=== PATIENT | male | born 1990 | race Caucasian/White ===

== ENCOUNTER 2017-04-16 05:31 | Inpatient (IN) | payer BC ==
[2017-04-16] MEDS ORDERED: OLANZapine DISINTEGR 5 MG TAB PO ONE (05:47)
--- NOTE | 2017-04-16 05:50 | EDPHY ---
H & P - Medical/Surgical History Hx Asthma: No Hx Chronic Respiratory Disease: No Hx Diabetes: No Hx Cardiac Disease: No Hx Renal Disease: No Hx Cirrhosis: No Hx Alcoholism: Yes Hx HIV/AIDS: No Hx Splenectomy or Spleen Trauma: No Other PMH: sleep shift syndrome, ADD, alcoholic - Social History Smoking Status: Former smoker Time Seen by Provider: 04/16/17 05:44 HPI/ROS: Chief Complaint: Paranoia HPI: 27-year-old male brought in by the police exhibiting symptoms of extreme paranoia. Police were called for and agitated male outside the [employer]. Patient states that there are man driving black vehicles trying to get him because of things that he has been posting on the Internet. He was not able to provide any further details to the police. Patient states that he felt unsafe going back into the hotel. They did confirm with hotel staff that he was indeed a registered gas there. He denies any drug use. He does state that he had ADD as a child but is not currently on any medications. Is not been under the care of psychiatrist in the past. Denies any alcohol use. He is unwilling to provide any further information about his situation because he states it will put us and himself in further danger. He is insisting that he wants to speak to a police supervisor channel process for his protection. ROS: 10 point Review of Systems is negative except as noted in the HPI. PMH: Attention deficit hyperactivity disorder Social History: No smoking, occasional alcohol, no recreational drug use Family History: non-contributory Physical Exam: Gen: Awake, Alert, agitated, appears to be afraid HEENT: Nose: no rhinorrhea Eyes: PERRLA, EOMI Mouth: Moist mucosa Neck: Supple, no JVD Chest: nontender, lungs clear to auscultation Heart: S1, S2 normal, no murmur Abd: Soft, non-tender, no guarding Back: no CVA tenderness, no midline tenderness Ext: no edema, non-tender Skin: no rash Neuro: CN II-XII intact, Sensation grossly intact, Strength 5/5 in bilateral upper and lower extremities (Denzel Christine) Constitutional: Initial Vital Signs Temperature (C) 36.4 C 04/16/17 05:53 Heart Rate 111 H 04/16/17 05:53 Respiratory Rate 18 04/16/17 05:53 Blood Pressure 144/87 H 04/16/17 05:53 O2 Sat (%) 95 04/16/17 05:53 O2 Delivery Mode Room Air Allergies/Adverse Reactions: No Known Allergies Allergy (Unverified 02/08/14 22:46) Home Medications: Medication Instructions Recorded NK [No Known Home Meds] 04/16/17 Medical Decision Making ED Course/Re-evaluation: 27-year-old male presenting with acute psychotic break. He is paranoid convince that people are out to get him. He he is not able or willing to provide any further details. I have offered him olanzapine but he is refusing at this time. He has been placed on a mental health hold by police. He will certainly need mental health evaluation. 0700 Pt s/o to Dr. Dasilva pending mental health evaluation. (Denzel Christine) 2:45 p.m. patient is in his room and is calm. We continue to await psychiatric evaluation and placement. Care transferred to Dr. Julian Randhawa at shift change. 3:15 p.m. patient has been evaluated by Mental Health and will be admitted to [address] [place] [address] Dr. Borjas. (Anup Dasilva) 1900: This patient has been accepted at [address] [place] [address] Borjas. Appropriate transfer be set up. EMTALA form filled out. (Julian Randhawa) Differential Diagnosis: Partial list of the Differential diagnosis considered include but were not limited to; psychosis, schizophrenia, substance abuse and although unlikely based on the history and physical exam, I also considered head injury, infection. (Anup Dasilva) - Data Points Laboratory Results: Laboratory Results 04/16/17 06:30 04/16/17 06:30 04/16/17 04/16/17 06:30 06:30 Neut % (Auto) 78.5 % H % (39.3-74.2) Lymph % (Auto) 13.5 % L % (15.0-45.0) [place] % (Auto) 6.9 % % (4.5-13.0) Eos % (Auto) 0.3 % L % (0.6-7.6) Baso % (Auto) 0.4 % % (0.3-1.7) Nucleat RBC Rel Count 0.0 % % (0.0-0.2) Absolute Neuts (auto) 7.23 10^3/uL H 10^3/uL (1.70-6.50) Absolute Lymphs (auto) 1.25 10^3/uL 10^3/uL (1.00-3.00) Absolute Monos (auto) 0.64 10^3/uL 10^3/uL (0.30-0.80) Absolute Eos (auto) 0.03 10^3/uL 10^3/uL (0.03-0.40) Absolute Basos (auto) 0.04 10^3/uL 10^3/uL (0.02-0.10) Absolute Nucleated RBC 0.00 10^3/uL 10^3/uL (0-0.01) Immature Gran % 0.4 % % (0.0-1.1) Immature Gran # 0.04 10^3/uL 10^3/uL (0.00-0.10) Sodium 137 mEq/L mEq/L (134-144) Potassium 3.4 mEq/L L mEq/L (3.5-5.2) Chloride 101 mEq/L mEq/L (97-110) Carbon Dioxide 25 mEq/l mEq/l (22-31) Anion Gap 11 mEq/L mEq/L (8-16) BUN 9 mg/dL mg/dL (7-23) Creatinine 0.7 mg/dL mg/dL (0.7-1.3) Estimated GFR > 60 Glucose 108 mg/dL H mg/dL (70-100) Calcium 9.7 mg/dL mg/dL (8.5-10.4) Ethyl Alcohol < 10 mg/dL mg/dL (0-10) Medications Given: Discontinued Medications Olanzapine (Zyprexa Zydis) 10 mg PO EDNOW ONE Stop: 04/16/17 05:48 Last Admin: 04/16/17 09:06 Dose: Not Given Departure - Departure Disposition: [facility] IP Clinical Impression: Acute psychosis Condition: Fair Referrals: NONE *PRIMARY CARE P,. [Primary Care Provider] - As per Instructions
[2017-04-16 06:46] LABS: % IMMATURE GRANULYOCYTES 0.4 % (0.0-1.1); ABSOLUTE IMMATURE GRANULOCYTES 0.04 10^3/uL (0.00-0.10); ADD DIFF? NO; ADD MORPH? NO; ADD SCAN? YES; FRAGMENT RBC FLAG 0 (0-99); HEMATOCRIT 36.4 % (40.0-51.0); HEMOGLOBIN 12.6 g/dL (13.7-17.5); LEFT SHIFT FLG 0 (0-99); LIPEMIA HEMOLYSIS FLAG 90 (0-99); MEAN CELL HEMOGLOBIN 30.8 pg (27.9-34.1); MEAN CELL HEMOGLOBIN CONCENTR. 34.6 g/dL (32.4-36.7); MEAN PLATELET VOLUME 9.5 fL (8.7-11.7); PLATELET CLUMPS FLAG 0 (0-99); PLATELET COUNT 330 10^3/uL (150-400); RED BLOOD CELL COUNT 4.09 10^6/uL (4.40-6.38); RED CELL DISTRIBUTION WIDTH 14.4 % (11.5-15.2)
[2017-04-16 06:48] LABS: ATYPICAL LYMPHOCYTE FLAG 150 (0-99)
[2017-04-16 07:01] LABS: ANION GAP 11 mEq/L (8-16); CALCIUM 9.7 mg/dL (8.5-10.4); CARBON DIOXIDE 25 mEq/l (22-31); CHLORIDE 101 mEq/L (97-110); CREATININE 0.7 mg/dL (0.7-1.3); ETHANOL SERUM < 10 mg/dL (0-10); GLOMERULAR FILTRATION RATE > 60; GLUCOSE 108 mg/dL (70-100); POTASSIUM 3.4 mEq/L (3.5-5.2); SODIUM 137 mEq/L (134-144)
[2017-04-16 07:15] LABS: SCAN NEGATIVE
[2017-04-16 16:28] VITALS: O2SAT 97
[2017-04-16 19:09] VITALS: BP 121/66; PULSE 62; TEMP 98.8
[2017-04-16 20:46] VITALS: RESP 17
[2017-04-16] MEDS ORDERED: ACETAMINOPHEN 325 MG TAB PO PRN (22:19)
[2017-04-16] MEDS ORDERED: LORazepam 0.5 MG TAB PO PRN (22:19)
[2017-04-16] MEDS ORDERED: OLANZapine DISINTEGR 5 MG TAB PO PRN (22:19)
[2017-04-16] MEDS ORDERED: MAG HYDROX/AL HYDROX/SIMETH 30 ML UDCUP PO PRN (22:19)
[2017-04-16] MEDS ORDERED: NICOTINE POLACRILEX 2 MG GUM B PRN (22:19)
[2017-04-16] MEDS ORDERED: MAGNESIUM HYDROXIDE 30 ML UDCUP PO PRN (22:19)
[2017-04-16] MEDS ORDERED: MELATONIN 3 MG TAB PO PRN (22:22)
[2017-04-16] MEDS ORDERED: OLANZapine DISINTEGR 10 MG TAB PO ONE (22:37)
--- NOTE | 2017-04-17 14:12 | BAPA ---
[f rep st] ADMISSION PSYCHIATRIC ASSESSMENT DATE OF SERVICE: 04/17/2017 CHIEF COMPLAINT: Paranoia. The patient stated, "I need to get some sleep. I think it's pretty german r. I don't want to get into that situation that was pretty over the top." HISTORY OF PRESENT ILLNESS: This is a 27-year-old man with no known past psych history, wh o was brought to [facility] ED by [email or web address] police on an M1 hold, which states "responding officer dispatched to a male who had repeatedly contacted the [facility] regarding unknown individuals chasing him in black [place]." The police report goes on to state, "male was unable or unwilling to provide any suspect info o r license plate info for involved vehicles. When asked why he was being chased, the male explained i t was because he had commented on info related to the [place] political and finance systems. Male appea red highly paranoid of his current living situation, the [facility]. Male also was not comfort able in any other scenarios offered by the responding officer. Male had been walking the streets and not staying in his hotel room. Temperature at the time was 28 degrees." Mental health sand car worker att empted at 3 different times to evaluate the patient in the [facility] ED, but the patient was unable t o complete the BDI, BSS questionnaires. Efforts to try to establish some rapport with the patient to feel more comfortable proved unsuccessful. The patient was not agitated or combative or aggressive. He was disorganized, incoherent, and paucity of speech, not responding to questions. ER evaluated and noted that the patient had a "significant thought blocking and response delays to simple question s." The patient was not able or willing to provide an emergency contact information, so no collatera l information could be obtained. The patient could not state for how long he had been staying at the [facility]. He stated that he had attended for a couple of years in the past, but could no t provide any specific details. He did deny taking any medications, but beyond that, the patient was not willing or able to provide any substantiating information. When this MD met with the patient on the behavioral health psych unit, he was extremely uncooperative and unwilling to be forthcoming. He was very pleasant and polite. He was lying on the couch in fro nt of the television, in a hospital gown. Initially, he was reluctant to meet with a psychiatrist. When the psychiatrist agreed to meet with him in an open area where we could be seen by the staff, th e patient agreed to sit in one of the chairs. When MD asked the patient if he could recall anything about the reason he got admitted or events of the prior evening, the patient said "it's pretty obviou s isn't it?" Later, when the MD prompted the patient for further details, the patient said "the repor ts are self-explanatory." When MD asks the patient what reports he was referring to, the patient seem ed to get frustrated and said "I think that's irrelevant." When MD asked the patient if he had ever t aken medications or had any prior experience with mental health treatment, patient said "I'm done ans wering questions." MD asked the patient if he was hungry. He said that he was. MD encouraged the pa myriam to eat lunch since trays were being provided in the dining area, and the patient said "maybe la ter" and said "I don't want to right now." PAST PSYCHIATRIC HISTORY: There is no information in the patient's record to indicate that he has ev er received any prior psych history, but again, the patient is not forthcoming, and no collateral inf ormation could be obtained at this time because we have no emergency contacts for the patient. ALLERGIES: The patient has no known drug allergies. CURRENT MEDICATIONS: None. PAST MEDICAL HISTORY: Unknown history due to the patient's unwillingness to provide us any informati on. SOCIAL HISTORY: Pretty much the same. The patient is not willing or able to disclose anything about his living situation or his social supports. The police were able to verify that the [facility], but they are not clear as to how long he had actually been staying the re, and when asked where the patient has been staying lately and whom he has had contact with, the bentley myriam is not forthcoming. SUBSTANCE USE HISTORY: Again, the patient does not answer any questions about his substance use hist ory. When asked about marijuana and alcohol specifically, the patient refuses to answer. His urine drug screen was negative. The only information that the patient does provide about his social histor y is that he told the ED sand car worker that he had attended , he said for 1-2 years "in the past," but gives no specifics as to when that was or what he was studying, or if he currently has a residence in [place] or where his current permanent place of residence is. He also denies answering any question s about any legal history. FAMILY HISTORY: Likewise, we do not know anything about the family history. We also have no emergen cy contacts. The patient is either unwilling or unable to disclose any social supports or relevant f amily information. ADMISSION LABS: The patient's white cell count was 9.23. Hemoglobin was 12.6. Hematocrit was 36.4. Platelet count was 330. His sodium level was 137. Potassium was 3.4, chloride 101, BUN 9, creatini ne 0.7. Glucose was 108, calcium 9.7. His urine drug screen was negative for all drugs of abuse. E thyl alcohol level, blood alcohol level was less than 10. MENTAL STATUS EXAMINATION: Patient is a very thin, appropriately groomed individual with a neatly tr immed oconnor, short brown hair. He is wearing a hospital gown, lying on the couch. Staff report that the patient did not sleep in his room and has not gone into his room since he was admitted. He has also declined to eat breakfast or lunch today. He seems guarded and defensive and wary. He is initi ally reluctant to speak to the MD, but when he does agree to talk to the MD, he is polite and pleasan t, but not forthcoming with any information. His affect is blunt. His mood, he says, is "okay." His thought process is disorganized. There is evidence of thought blocking, paucity of speech. His tho ught content reveals evidence of paranoia based upon his report to the police about being followed by people in [facility] and his reluctance to engage in conversation or relay information to the ED e valuator, as well as this MD. The patient is alert and oriented only to person. He does not know wh ere he is or why he is here. He is not accurate about the date or the time either. There is no evid ence or indication that he has reported any thoughts of suicide, either when he was picked up by the police or when he was evaluated in the ED. He has not endorsed any SI, HI today. His intellect is d ifficult to assess, although he states that he does have approximately 1-2 years of college, but this has not been verified, and he does not answer questions sufficiently to evaluate his fund of knowled ge or his vocabulary. His insight and judgment are both severely impaired at the current time. DIAGNOSES: 1. Psychosis. 2. Psychosocial stressors include apparent lack of social support, living in a hotel, unclear as to what other stressors might be affecting him at this time. Will await further information from the pa tient or hopefully be able to obtain some information from collateral sources if he is willing to dis close, or if we can get some information from his personal belongings. PLAN: 1. Admit to behavioral services inpatient unit on an M1 hold. 2. Monitor closely for safety and on assault precautions. 3. The patient has Zyprexa ordered, which he has refused. He has also refused all other medications , including pain medications and Ativan, which was offered for anxiety. 4. Will engage the patient in individual, group, and milieu therapies as much as possible. So far, the patient has been avoiding interactions with peers and involvement of participation in any milieu activities. He has also refused meals and has refused to go to his room. 5. Estimated length of stay is 3-5 days. /[id number]/MODL
--- NOTE | 2017-04-17 18:58 | GCON ---
[f rep st] CONSULTATION MEDICINE CONSULTATION DATE OF CONSULTATION: 04/17/2017 REASON FOR CONSULTATION: Medical opinion regarding med stabilization for inpatient psychiatric hospi talization. HISTORY: The patient is a 27-year-old male, who was found paranoid and agitated by police in front o f a hotel that he was staying at. He was under the impression that there was some black vehicles gabriele t were following him, and he called police. Since arriving at the inpatient unit, he is refusing to talk to anyone. He is refusing to give any further details. He is refusing any medications. He is refusing vital signs, he is refusing physical examination. No further information is available at th is time. PAST MEDICAL HISTORY: ADD. MEDICATIONS: None. ALLERGIES: No known drug allergies. SOCIAL HISTORY: Unknown, as the patient is refusing any further questioning. REVIEW OF SYSTEMS: Unobtainable due to the patient's refusal of questioning. FAMILY HISTORY: Unobtainable due to the patient's refusal of questioning. PHYSICAL EXAMINATION: GENERAL: He is a well-developed, well-nourished male. He is sitting comforta natalio on the couch eating a snack. He is awake, alert, just answers no, thank you to all questioning, although it is clear that he is comprehending the situation. VITAL SIGNS: Temp is 37.1, pulse 62, b lood pressure 121/66, satting 92% on room air. HEENT: Eye examination normal conjunctivae. No scle ral icterus. Hearing is intact. Unable to assess oropharynx due to the patient's noncompliance with examination. NECK: Appears supple. LUNGS: Unable to assess lungs due to the patient's refusal of auscultation. HEART: Unable to assess cardiovascular due to refusal of auscultation. There does n ot appear to be any edema. ABDOMEN: There does not appear to be any abdominal distention or abdomin al discomfort. SKIN: Warm, dry, intact without rash. MUSCULOSKELETAL: He appears to have 5/5 stre ngth in all extremities due to witnessed normal movement throughout. No cyanosis or clubbing. NEURO : Cranial nerves are grossly intact. Unable to assess sensation due to the patient refusal on any k ind of formal testing. He is awake, alert, not agitated. Seems to be perhaps a little angry that he is here. He is not hallucinating. He is pleasant and cooperative despite this refusal. LABS: White count 9.26, hematocrit 36.4, platelets 330, sodium 137, potassium 3.4, chloride 101, bic arb 25, BUN 9, creatinine 0.7, glucose 68. ASSESSMENT/PLAN: 1. Paranoia and agitation. Currently without any agitated behavior, but noncompliant with any furth er medical questioning or medical treatment. He continues on an M1 hold per Psychiatry. 2. Attention deficit disorder. Baseline treatment is unknown due to the patient's refusal to comply with questioning. 3. Anemia. This is mild. Etiology is unclear. I think this could be followed up as an outpatient. 4. Hypokalemia. This is also mild. I anticipate this will resolve with normal oral intake, and no urgent need to give any supplemental potassium at this time. Thank you very much for this consultation. Please recontact Internal Medicine if further assistance is needed during his stay. He is clearly medically stable for ongoing inpatient psychiatric hospital ization. /[id number]/MODL
--- NOTE | 2017-04-18 14:00 | SOAPPROG ---
SOAP Progress Note Assessment/Plan: Assessment: 27 yo man who reportedly has no psych hx. He was BIB [employer] to [facility] ED d/t paranoia believing that "some people in a black [place]" were after him. He was also refusing to stay in his hotel room and was walking on street when [employer] intercepted him. 04/18/17 13:56 1. Patient is refusing to take any psych meds. He denies any acute psychotic sxs , denies paranoia (even though it was a presenting sx) and denies AH/VH, delusions, IOR. He denies any SI/HI. 2. Patient refuses to provide any information about his family or friends. 3. Will place on [facility] until staff are able to verify patient will be safe upon discharge. He does not appear to be gravely disabled and states he "won't be living on the streets." But MD has no way today to verify this. Hopefully patient will allow us to contact someone for collateral information prior to d/ c. 4. Patient says he will accept referral for mental health providers even though he isn't interested in taking meds. He says he might be willing to "check in" with a doctor or therapist after d/c. Subjective: Met with patient and d/w staff. Patient presents more lucid, coherent and cooperative today. He slept 7.5 hrs in his room last night (had previously avoided going into his room and slept on couch in TV area). He is neatly groomed and appropriately dressed in street clothes. He says that his admission was d/t a "misunderstanding." He claims that "there were people yelling" out of SUV on street in front of [facility] on Wednesday night and patient took what they were saying "personally." He admits he called police b/c "that's what you' re supposed to do if people threaten you." He says now he doesn't think he was threatened and admits the people in black [place] "probably weren't even talking to me." However, he still refuses to provide any contact information for collateral. He says he moved to [place] 4 years ago, but has not worked during that time. 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 He says his family supports him financially and pays his rent. He had an apartment in [place], but says the lease has and he's been "staying in hotels" since that time. He says he doesn't get along with his family and doesn't communicate with them at all, but they still put money in bank account for him and pay his credit card bills. Patient says he has no friends or work colleagues and no social support. When MD asks where his parents live, he says, "I don't know, they move around a lot." Patient says he has money to pay for a hotel and would not be "living on the street" if he were discharged from hospital. He denies any psych tx in past and denies ever taking psych meds. He refuses to take any meds now, but says he would "check in" with a doctor or therapist after discharge if given a referral. However, he won't tell MD where he intends to go after discharge. Objective: Vital Signs Temp Pulse Resp BP Pulse Ox 37.1 C 62 17 121/66 H 97 04/16/17 20:00 04/16/17 20:00 04/16/17 20:00 04/16/17 20:00 04/16/17 20:00 MSE: Affect: Euthymic Mood: "OK" TP: Linear, but guarded TC: Denies any SI/HI , denies AH/VH, paranoia and IOR Insight/Judgment: Poor - Time Spent With Patient Time Spent With Patient: 25" - Pending Discharge Pending Discharge Within 24 Hours: No Pending Discharge Within 48 Hours: No ICD10 Worksheet Patient Problems: Problems Problem Status Onset Acute psychosis Acute
--- NOTE | 2017-04-20 00:22 | BDS ---
[f rep st] BEHAVIORAL HEALTH DISCHARGE SUMMARY ADMITTING DIAGNOSIS: Psychosis. IDENTIFICATION: This is a 27-year-old single white male who is currently homeless. He stays in motels and receives financial support from his parents. The patient is not currently in any outpatient mental health treatment. BRIEF PSYCHIATRIC HISTORY: The patient denies any past outpatient or inpatient mental health treatment. He denies any past suicide attempts or violence toward others. BRIEF MEDICAL HISTORY: The patient denies any chronic medical problems. REASON FOR ADMISSION: The patient apparently was at a hotel, he was making multiple phone calls to the police reporting that he was being followed and harassed by people in a black [place]. When the police met with him, he was unable to give any further information, and was acting strange. They took him to the emergency department on M1 hold. The patient was then admitted to the inpatient psychiatric unit. INITIAL EXAM: When the patient was on the inpatient unit, he was noncooperative with Dr. Escoto over the weekend regarding providing information about past and recent history, and would not allow the staff to contact his parents. The patient was ambulatory, thin, noncooperative. Speech was regular rate and rhythm. His thoughts were briefly organized but with possible thought blocking and a poverty of information and guarded attitude. The patient denied any thoughts to hurt himself or others, or any auditory hallucinations. He reported paranoia about being followed by people on a black vehicle, and concerned that this was somehow related to the Internet. The patient had poor insight and questionable judgment. HOSPITAL COURSE: The patient was admitted to the inpatient unit due to concern he was having a psychotic episode. The patient was guarded, stayed in his room most of the time. He denied further paranoia about being followed or monitored. He refused to take HS Zyprexa that was offered to him at bedtime. After admission, he denied feeling like he was being harassed by anyone or any worry about computers or the Internet. The patient did not want to take psychiatric medications for possible psychotic symptoms. He was placed on a short-term certification to allow him to stay on the unit for further assessment. When I met with the patient on April 19, the patient reported that he was not interested in taking psychiatric medication, but will consider taking psychiatric medication in the future if he has a recurrence of paranoia. He reported that he did have funding through his credit cards and his bank accounts from his parents, and that he would be able to stay in a motel until he could find his own apartment. He declined to sign release of information for us to talk to his parents. He did note that his health insurance was active and he could use his health insurance to fill a prescription or get outpatient followup after discharge. The patient denied having further paranoia that he was being followed or monitored or harassed. He denied any concern that he was being monitored by the Internet or any concerns about the Internet or computers. The patient denied any hallucinations. He denied any history of severe depression, or any past manic symptoms. He denied drug or alcohol abuse prior to admission. He was able to perform a SLUMS test, which is a [facility] Mental Status Exam; he scored 30/30 on this test. The patient was calm and cooperative on the unit superficially, but would not give any detailed information about his background, his social history or his family. Patient was calm on the unit and did not display any impulsivity or dangerous behaviors and denied having thoughts to harm himself or others. Prior to discharge, the patient denies any thoughts to hurt himself or others. He denies having paranoia or hallucinations. He is ambulatory, thin. No tremors. No focal weakness. His speech is regular rate and rhythm. His thoughts are briefly organized with a poverty of information. He has limited insight and questionable judgment regarding the need for treatment. LABS: In the emergency room, he had a white blood cell count 9.2, hemoglobin 12.6, platelet count 330. Sodium 137, potassium 3.4, creatinine 0.7, glucose was 108, calcium 9.7. Urine drug screen negative. DISCHARGE DIAGNOSIS: Brief psychotic disorder, now resolved. DISCHARGE MEDICATIONS: Risperdal 0.5 mg by mouth at bedtime. The patient was given information and a handout about Risperdal, including the risks of extrapyramidal symptoms, neuroleptic malignant syndrome, metabolic syndrome, gynecomastia, and diabetes. The patient reported he was unsure if he would take the medicine after discharge, but he would start taking it if he felt he was having paranoia or anxiety. DISPOSITION: The patient reports he will be leaving to go stay in a hotel. FOLLOWUP: The patient is agreeable to call [facility] to schedule a mental health followup. LEGAL STATUS: The patient was admitted on an M1 hold and then converted to a short-term certification to allow the patient to be monitored on the unit. This will be terminated when the patient is discharged so he can get outpatient followup on a voluntary basis. /[id number]/[id number]
== END 2017-04-19 14:45 | disposition home or self-care (01) | DRG 885 ==
LOC: EEVIPCON 05:31 → BBEH 21:30
PROVIDERS: ADMIT Psychiatry & Neurology Psychiatry
DX: F23 Brief psychotic disorder (principal); F90.9 Attention-deficit hyperactivity disorder, unspecified type; E87.6 Hypokalemia; D64.9 Anemia, unspecified; Z63.8 Other specified problems related to primary support group; Z87.891 Personal history of nicotine dependence; Z59.0 Homelessness
CPT/HCPCS: 80305; G0480